=== PATIENT | male | born 1965 | race Caucasian/White ===

== ENCOUNTER → 2016-09-19 | Outpatient (CLI) | payer BC ==
[~2016-09-19] VITALS: Ht 182.9 cm; Wt 90.6 kg
[~2016-09-19] MED LIST: AMBIEN 10MG10 MG PO; BYSTOLIC2.5 MG; BYSTOLIC5 MG PO; PERCOCET 325 MG1 TA3 PO; SOMA 350MG350 MG/TAB PO; ULTRAM 50MG TAB50 MG PO; ZOCOR 40MG40 MG PO; ZOCOR5 MG
[2016-09-19 07:28] VITALS: BP 120/79; PULSE 64
[2016-09-19 08:41] VITALS: BP 123/93; PULSE 64
== END ==
LOC: COL.RAD 07:00
DX: M51.16 Intervertebral disc disorders with radiculopathy, lumbar region (principal)
CPT/HCPCS: J3301

== ENCOUNTER → 2017-05-18 | Outpatient (CLI) | payer BC ==
[~2017-05-18] VITALS: Ht 182.9 cm; Wt 91.3 kg
[2017-05-18 07:15] VITALS: BP 128/86; PULSE 63
[2017-05-18 08:25] VITALS: BP 126/81; PULSE 57
== END ==
LOC: COL.RAD 07:00
DX: M51.36 Other intervertebral disc degeneration, lumbar region (principal); M79.605 Pain in left leg
CPT/HCPCS: J3301

== ENCOUNTER → 2017-12-24 | Outpatient (CLI) | payer BC ==
[~2017-12-24] VITALS: Ht 182.9 cm; Wt 90.9 kg
[2017-12-24 13:50] VITALS: BP 124/93; PULSE 70
== END ==
LOC: COL.RAD 12:30
DX: M51.36 Other intervertebral disc degeneration, lumbar region (principal)
CPT/HCPCS: J3301

== ENCOUNTER → 2018-01-27 | Outpatient (CLI) | payer BC ==
[~2018-01-27] VITALS: Ht 182.9 cm; Wt 88.0 kg
[2018-01-27 12:17] VITALS: BP 130/82; PULSE 68
[2018-01-27 13:33] VITALS: BP 151/90; PULSE 64
== END ==
LOC: COL.RAD 11:45
DX: M51.36 Other intervertebral disc degeneration, lumbar region (principal)
CPT/HCPCS: J3301

== ENCOUNTER 2018-04-02 13:30 | Outpatient (RCR) | payer BC | END 2018-04-02 13:45 | disposition home or self-care (01) | LOC: WSC 13:30 | DX: M51.36 Other intervertebral disc degeneration, lumbar region (principal); M54.16 Radiculopathy, lumbar region ==

== ENCOUNTER → 2018-05-04 | Outpatient (CLI) | payer BC ==
[~2018-05-04] VITALS: Ht 182.9 cm; Wt 92.1 kg
[2018-05-04 07:27] VITALS: BP 128/86; PULSE 63
[2018-05-04 08:10] VITALS: BP 135/90; PULSE 60
--- NOTE | 2018-05-04 08:25 | NUR ---
pt out to car per wheelchair. Denies complaints of pain. Into car with stand by assistance.
--- NOTE | 2018-05-04 08:32 | NUR ---
pt was taken down to pov. pt able to transfer to pov independently
== END ==
LOC: COL.RAD 07:00
DX: M51.36 Other intervertebral disc degeneration, lumbar region (principal)
CPT/HCPCS: J3301

== ENCOUNTER → 2023-12-17 | Outpatient (CLI) | payer BC | LOC: COL.RAD 10:13 | DX: K21.9 Gastro-esophageal reflux disease without esophagitis (principal) ==